=== PATIENT | male | born 1960 | race Caucasian/White ===

== ENCOUNTER 2018-03-02 22:03 | Emergency (ER) | payer MEDICAID ==
[2018-03-02 22:36] VITALS: RESP 20
[2018-03-02] MEDS: ALBUTEROL/IPRATROPIUM 1 VIAL SOL INH ONE (23:03)
[2018-03-02] MEDS ORDERED: ALBUTEROL/IPRATROPIUM 1 VIAL SOL ONE (23:04)
[2018-03-02 23:38] VITALS: BP 112/51; PULSE 95; TEMP 97.5; O2SAT 87
== END 2018-03-03 00:35 | DRG 206 ==
LOC: ED 22:03
DX: J95.03 Malfunction of tracheostomy stoma (principal); Z43.0 Encounter for attention to tracheostomy
CPT/HCPCS: 71045; 99283; 99284